=== PATIENT | female | born 1950 | race Caucasian/White ===

== ENCOUNTER → 2023-08-19 | Outpatient (CLI) | payer MEDICARE | LOC: M RAD 12:54 | PROVIDERS: ATTEND Physician Assistant | DX: I65.23 Occlusion and stenosis of bilateral carotid arteries (principal) ==

== ENCOUNTER 2023-09-22 17:49 | Emergency (ER) | payer MEDICARE ==
[~2023-09-22] VITALS: Ht 160 cm; Wt 111.2 kg
[2023-09-22] MEDS ORDERED: HYDR-3490 (18:05)
[2023-09-22] MEDS ORDERED: ELIQ5TAB (18:05)
[2023-09-22] MEDS ORDERED: ATOR1TAB19 (18:05)
[2023-09-22] MEDS ORDERED: POTA1TAB23 (18:05)
[2023-09-22 19:10] LABS: BASO % 0.2 % (0.0-1.0); EOS # 0.1 10^3/uL (0.0-0.5); EOS % 0.8 % (0.0-3.0); HEMATOCRIT 42.4 % (36.0-47.0); HEMOGLOBIN 14.1 g/dl (12.0-15.5); MEAN CORPUSCULAR HGB CONC 33.3 g/dl (32.0-36.5); MEAN CORPUSCULAR VOLUME 93.2 fl (80.0-96.0); MONO # 0.5 10^3/uL (0.0-0.8); MONO % 5.3 % (2.0-8.0); NEUTROPHILS % 70.2 % (36.0-66.0); PLATELET COUNT, AUTOMATED 177 10^3/uL (150-450); RED BLOOD COUNT 4.55 10^6/uL (4.00-5.40); WHITE BLOOD COUNT 8.6 10^3/uL (4.0-10.0)
[2023-09-22 19:47] LABS: ALBUMIN 3.6 G/DL (3.2-5.2); BILIRUBIN,DIRECT 0.2 MG/DL (<0.4); BILIRUBIN,TOTAL 0.5 MG/DL (0.3-1.2); TOTAL PROTEIN 7.4 G/DL (5.7-8.2)
[2023-09-22] MEDS ORDERED: ISOVUE-370 76% 100ML VIAL As Ordered ONE (20:45)
[2023-09-22 23:00] VITALS: BP 130/74; TEMP 98.3; O2SAT 100
== END 2023-09-22 23:09 | disposition home or self-care (01) ==
LOC: M ED 17:49
DX: K80.50 Calculus of bile duct without cholangitis or cholecystitis without obstruction (principal); I10 Essential (primary) hypertension; E78.5 Hyperlipidemia, unspecified; Z88.5 Allergy status to narcotic agent; Z88.8 Allergy status to other drugs, medicaments and biological substances
CPT/HCPCS: 74177; 80047; 80076; 83690; 84132; 85025; 99284; Q9967